=== PATIENT | male | born 1960 | race Caucasian/White ===

== ENCOUNTER 2016-08-11 16:26 | Emergency (ER) | payer MEDICARE, MEDICAID ==
[~2016-08-11] VITALS: Ht 157.5 cm; Wt 57.0 kg
[2016-08-11] MEDS ORDERED: KEPP500 PO (16:48)
[2016-08-11] MEDS ORDERED: LACT10SO6 PO (16:48)
[2016-08-11] MEDS ORDERED: OMEP20TA80 PO (16:48)
[2016-08-11] MEDS ORDERED: LEVO50TA70 PO (16:48)
[2016-08-11] MEDS ORDERED: TETANUS, DIPHTHERIA, PERTUSSIS VAC/PF 0.5ML (>7YR OLD) IM ONE (23:00)
[2016-08-11] MEDS ORDERED: LIDOCAINE HCL 1% 20ML VIAL (Pyxis) INJ MC ONE (23:00)
[2016-08-11] MEDS ORDERED: BACITRACIN ZINC OINT UDPKT TOP ONE (23:00)
[2016-08-11 23:50] VITALS: BP 141/100
== END 2016-08-11 23:51 | disposition home or self-care (01) ==
LOC: ER 22:50
DX: S61.211A Laceration without foreign body of left index finger without damage to nail, initial encounter (principal); Q90.9 Down syndrome, unspecified; E11.9 Type 2 diabetes mellitus without complications; E03.9 Hypothyroidism, unspecified; G40.909 Epilepsy, unspecified, not intractable, without status epilepticus; I48.91 Unspecified atrial fibrillation; N28.9 Disorder of kidney and ureter, unspecified; Z93.1 Gastrostomy status; Z93.0 Tracheostomy status; Z79.01 Long term (current) use of anticoagulants; W45.8XXA Other foreign body or object entering through skin, initial encounter; Y93.89 Activity, other specified; Y92.018 Other place in single-family (private) house as the place of occurrence of the external cause
CPT/HCPCS: 12001; 90471; 90715; 99283; J3490